=== PATIENT | female | born 1985 | race Caucasian/White ===

== ENCOUNTER → 2017-12-11 08:19 | Outpatient (CLI) | payer MEDICARE ==
[2012-06-04 13:09] VITALS: BMI 17.2
== END | disposition home or self-care (01) ==
LOC: D.US 08:19
DX: R93.89 Abnormal findings on diagnostic imaging of other specified body structures (principal)

== ENCOUNTER 2017-12-17 08:08 | Day surgery (SDC) | payer MEDICARE ==
[~2017-12-17] VITALS: Ht 152.4 cm; Wt 149.2 kg
[2017-12-17 08:40] LABS: HEMATOCRIT 38.7 % (36.0-48.0); MCH 29.8 pg (26.0-34.0); MCHC 33.6 g/dL (31.0-37.0); MCV 88.8 fL (80.0-100.0); MEAN PLATELET VOLUME 10.4 fL (7.4-10.4); RBC 4.36 10x6/uL (4.00-5.40); RDW 13.9 % (11.5-14.5); WBC 8.2 10x3/uL (4.8-10.8)
[2017-12-17 08:52] LABS: CALC OSMOLALITY 277 mosm/kg (275-300); CALCIUM 9.3 mg/dL (8.5-10.1); CARBON DIOXIDE 22.5 mmol/L (21.0-32.0); CHLORIDE - SERUM 105 mmol/L (98-107); CREATININE - SERUM 0.6 mg/dL (0.6-1.3); GLUCOSE 97 mg/dL (74-106); POTASSIUM - SERUM 4.3 mmol/L (3.5-5.1); SODIUM 140 mmol/L (136-145); UREA NITROGEN 10 mg/dL (7-18); eGFR NON AFRICAN AMERICAN > 90 mL/min (90-120)
[2017-12-17] MEDS ORDERED: DESMOPRESSIN A0.2 MG PO ×2 (08:57→09:08)
[2017-12-17] MEDS ORDERED: ABILIFY10 MG PO (08:58)
[2017-12-17] MEDS ORDERED: PROVERA10 MG PO (08:59)
[2017-12-17] MEDS ORDERED: GLUCOPHAGE500 MG PO (09:02)
[2017-12-17] MEDS ORDERED: VITAMIN D5000 UNIT PO (09:03)
[2017-12-17] MEDS ORDERED: PRAVASTATIN SOD10 MG PO (09:03)
[2017-12-17] MEDS ORDERED: CALCIUM 600 +1 EAC3 PO (09:04)
[2017-12-17] MEDS ORDERED: OMEPRAZOLE20 M1 PO (09:04)
[2017-12-17] MEDS ORDERED: ZOFRAN4 MG PO (09:05)
[2017-12-17] MEDS ORDERED: IMODIUM2 MG PO (09:06)
[2017-12-17] MEDS ORDERED: IBUPROFEN200 MG PO (09:06)
[2017-12-17] MEDS ORDERED: ACETAMINOPHEN325 MG PO (09:07)
[2017-12-17] MEDS ORDERED: FLUTICASONE PRO16 GM NASAL (09:07)
[2017-12-17 09:27] LABS: HCG URINE NEGATIVE (NEGATIVE)
[2017-12-17 09:32] VITALS: Ht 152.4 cm; Wt 149.2 kg
[2017-12-17] MEDS ORDERED: HYDROCODON-ACE1 EAC7 PO (10:40)
== END 2017-12-17 13:00 | disposition home or self-care (01) ==
LOC: D.OPS 08:08 → D.PAN 10:00 → D.OPS 13:00
PROVIDERS: Anesthesiology; Surgery
DX: K80.10 Calculus of gallbladder with chronic cholecystitis without obstruction (principal); Z01.812 Encounter for preprocedural laboratory examination

== ENCOUNTER → 2018-07-10 07:48 | Outpatient (CLI) | payer MEDICARE ==
[2017-12-17 09:32] VITALS: BMI 64.3
[~2018-07-10 07:48] MED LIST: ABILIFY10 MG PO; ACETAMINOPHEN325 MG PO; CALCIUM 600 +1 EAC3 PO; DESMOPRESSIN A0.2 MG PO; FLUTICASONE PRO16 GM NASAL; GLUCOPHAGE500 MG PO; HYDROCODON-ACE1 EAC7 PO; IBUPROFEN200 MG PO; IMODIUM2 MG PO; OMEPRAZOLE20 M1 PO; PRAVASTATIN SOD10 MG PO; PROVERA10 MG PO; VITAMIN D5000 UNIT PO; ZOFRAN4 MG PO
== END | disposition home or self-care (01) ==
LOC: D.MRI 07:48
PROVIDERS: ATTEND Orthopaedic Surgery
DX: M54.5 Low back pain (principal)

== ENCOUNTER → 2020-04-10 05:49 | Outpatient (CLI) | payer MEDICARE ==
[2020-02-19 13:31] VITALS: BMI 39.0
[~2020-04-10 05:49] MED LIST changes: +ASCORBIC ACID500 MG PO; +CLARITIN 10 MG10 MG PO; +CLEOCIN HCL300 MG PO; +GENTAMICIN 0.3 %5 ML EACH EYE; +MULTI-DAY VITAM1 TAB PO; +PROTONIX20 MG PO; +ROCEPHIN 1 GM/D51 G1 IM; +ULTRAM50 MG PO; +ZINC-220220 MG PO; +ZOLOFT25 MG PO; +ZYPREXA10 MG PO
[2020-04-10 09:48] LABS: BILIRUBIN NEGATIVE (NEGATIVE); KETONE NEGATIVE (NEGATIVE); NITRITE NEGATIVE (NEGATIVE); UROBILINOGEN NORMAL mg/dL (< 2)
[2020-04-10 09:49] LABS: WHITE CELLS - URINE 25-50 HPF (0-4)
[2020-04-10 09:50] LABS: BACTERIA MANY HPF (NONE SEEN); SQUAMOUS EPITHELIAL 0-5 HPF (0-4)
== END | disposition home or self-care (01) ==
LOC: D.LABREF 05:49
PROVIDERS: ATTEND Family Medicine
DX: R10.813 Right lower quadrant abdominal tenderness (principal)

== ENCOUNTER → 2020-04-14 15:12 | Outpatient (CLI) | payer MEDICARE ==
[2020-02-19 13:31] VITALS: BMI 39.0
== END | disposition home or self-care (01) ==
LOC: D.LABREF 15:12
PROVIDERS: ATTEND Family Medicine
DX: R82.79 Other abnormal findings on microbiological examination of urine (principal)

== ENCOUNTER → 2020-07-09 15:42 | Outpatient (CLI) | payer MEDICARE ==
[2020-02-19 13:31] VITALS: BMI 39.0
== END | disposition home or self-care (01) ==
LOC: D.LABREF 15:42
PROVIDERS: ATTEND Family Medicine
DX: E11.9 Type 2 diabetes mellitus without complications (principal)